=== PATIENT | male | born 1960 | race Hispanic/Latino ===

== ENCOUNTER 2018-05-11 09:09 | Emergency (ER) | payer MEDICAID ==
[2018-05-11 09:11] VITALS: BMI 30.9
[2018-05-11 09:15] VITALS: RESP 18
[2018-05-11] MEDS ORDERED: Sodium Chloride 0.9% 1,000 ML IV ONE (09:26)
[2018-05-11] MEDS ORDERED: Sodium Chloride 0.9% 1,000 ML ONE (09:40)
[2018-05-11 09:56] LABS: BASO # 0.1 K/uL (0.0-0.2); BASO % 1.2 % (0.0-2.0); EOS % 0.5 % (0.0-4.0); HEMOGLOBIN 12.1 g/dL (12.0-18.0); LYMPH # 0.7 K/uL (1.0-4.3); LYMPH % 7.3 % (20.0-40.0); MEAN CELL VOLUME 85.9 fL (80.0-94.0); MEAN CORPUSCULAR HEMOGLOBIN 28.4 pg (27.0-31.0); MEAN CORPUSCULAR HGB CONC 33.1 g/dL (33.0-37.0); MONO # 1.4 K/uL (0.0-0.8); MONO % 13.8 % (0.0-10.0); NEUT # 7.7 K/uL (1.8-7.0); NEUT % 77.2 % (50.0-75.0); NRBC % 0.1 % (0.0-2.0); PLATELET COUNT 239 K/uL (130-400); RBC 4.25 Mil/uL (4.40-5.90); RED CELL DISTRIBUTION WIDTH 18.1 % (11.5-14.5)
[2018-05-11 10:07] LABS: URINE BACTERIA MOD (<OCC); URINE BILIRUBIN NEGATIVE (NEGATIVE); URINE BLOOD 2+ (NEGATIVE); URINE CLARITY Turbid (Clear); URINE COLOR Yellow (YELLOW); URINE GLUCOSE (UA) NORMAL (Normal); URINE LEUKOCYTE ESTERASE 3+ Leu/uL (Negative); URINE PROTEIN 2+ mg/dL (NEGATIVE); URINE UROBILINOGEN NORMAL mg/dL (0.2-1.0); WBC CLUMPS RARE /hpf
[2018-05-11 10:07] LABS: INR 1.2; PROTHROMBIN TIME 13.5 SECONDS (9.7-12.2)
[2018-05-11 10:11] LABS: ALB/GLOB RATIO 1.4 (1.0-2.1); ALBUMIN 4.3 g/dL (3.5-5.0); ALT/SGPT 66 U/L (21-72); AST/SGOT 50 U/L (17-59); BLOOD UREA NITROGEN 59 mg/dL (9-20); CALCIUM 9.2 mg/dl (8.6-10.4); GFR NON-AFRICAN AMERICAN 52; LIPASE 49 U/L (23-300)
[2018-05-11 10:23] LABS: BASOPHIL 1 % (0-2); LYMPHOCYTE 9 % (20-40); MONOCYTE 12 % (0-10); NEUTROPHIL 78 % (50-75); PLATELET ESTIMATE NORMAL (NORMAL); TOTAL CELLS COUNTED 100
[2018-05-11 10:24] LABS: HYPOCHROMIC SLIGHT
--- NOTE | 2018-05-11 11:36 | CT ---
PROCEDURE: CT Abdomen and Pelvis without Oral or IV contrast. HISTORY: dysuria/hematuria COMPARISON: None available. TECHNIQUE: Contiguous axial images of the abdomen and pelvis. No oral or IV contrast administered. Coronal and Sagittal reformats generated and reviewed. Radiation dose: Total exam DLP = 932.41 mGy-cm. This CT exam was performed using one or more of the following dose reduction techniques: Automated exposure control, adjustment of the mA and/or kV according to patient size, and/or use of iterative reconstruction technique. FINDINGS: There is limited evaluation of the solid organs without the administration of IV contrast. LOWER THORAX: Mild bibasilar atelectasis. No visible pleural effusion or pneumothorax. Hiatal hernia/distal esophageal wall thickening. LIVER: Unremarkable unenhanced appearance. GALLBLADDER AND BILE DUCTS: Unremarkable unenhanced appearance. PANCREAS: Unremarkable unenhanced appearance. SPLEEN: Unremarkable unenhanced appearance. ADRENALS: Left adrenal gland hypertrophy. The right adrenal gland appears unremarkable. KIDNEYS AND URETERS: Severe right-sided hydroureter nephrosis. Mild left-sided hydroureter ureter nephrosis. The kidneys appear malrotated bilaterally. No obstructing calculi identified. BLADDER: Irregularly thick-walled under distended urinary bladder with adjacent inflammatory changes. Unusual appearance of the perivesicular fat on the right may be postsurgical appearance; correlate with surgical history. Small fluid in the right perivascular/inguinal region spanning approximately 3.1 x 3.6 cm and measures approximately 9 HU, possibly postsurgical seroma REPRODUCTIVE: The prostate gland measures approximately 5.3 x 4.9 cm and contains calcifications. APPENDIX: The appendix appears within normal limits of caliber. No secondary signs of acute appendicitis. BOWEL: The stomach is nondistended. Lack of oral contrast limits evaluation for bowel pathology. The bowel loops appear within normal limits of caliber without evidence of intestinal obstruction. PERITONEUM: 5.2 x 3.9 cm low-density mass in the right retroperitoneum. No definite free air. VASCULATURE: Atherosclerotic calcifications of the aorta. No aortic aneurysm. BONES: Degenerative changes. OTHER FINDINGS: Fat, fluid, and vessels noted in the right inguinal region; correlate clinically for possibility of lipomatosis of the spermatic cord. Large fat containing left inguinal hernia. IMPRESSION: 5.2 x 3.9 cm low-density mass in the right retroperitoneum, indeterminate. Recommend correlation with prior outside imaging if available. Considerations include but not limited to primary retroperitoneal neoplasm, lymphadenopathy, etc. Severe right-sided hydroureter nephrosis. Mild left-sided hydroureter ureter nephrosis. The kidneys appear malrotated bilaterally. No obstructing calculi identified. Irregularly thick-walled under distended urinary bladder with adjacent inflammatory changes; recommend correlation with urinalysis. Unusual appearance of the perivesicular fat on the right may be postsurgical appearance; correlate with surgical history. Small fluid in the right perivascular/inguinal region spanning approximately 3.1 x 3.6 cm and measures approximately 9 HU, possibly postsurgical seroma. Fat, fluid, and vessels noted in the right inguinal region; correlate clinically for possibility of lipomatosis of the spermatic cord. Large fat containing left inguinal hernia. Additional findings as above. Findings discussed with Dr. Christopher on 05/11/18 at 11:25 a.m.
[2018-05-11 12:01] VITALS: BP 107/72; PULSE 88; TEMP 98.5; O2SAT 94
--- NOTE | 2018-05-11 12:44 | C.PDOC ---
History Of Present Illness 57 y/o male presents to the ER complaining of suprapubic abdominal pain, dysuria and hematuria which has been present since yesterday. Patient states that he had recent hernia repair at [facility].Denies having fever,chills, nausea, vomiting, and back pain. Of note, HPI is limited because patient is poor historian from surgical history standpoint. Time Seen by Provider: 05/11/18 09:16 Chief Complaint (Nursing): Male Genitourinary History Per: Patient History/Exam Limitations: other (pt is poor historian) Onset/Duration Of Symptoms: Days Current Symptoms Are (Timing): Still Present Severity: Moderate Past Medical History Reviewed: Historical Data, Nursing Documentation, Vital Signs Vital Signs: Last Vital Signs Temp 98.5 F 05/11/18 12:00 Pulse 88 05/11/18 12:00 Resp 18 05/11/18 12:00 BP 107/72 05/11/18 12:00 Pulse Ox 94 L 05/11/18 12:00 - Medical History PMH: HTN, Hypercholesterolemia Other Surgeries: Hx of surgeries Family History: States: No Known Family Hx - Social History Hx Alcohol Use: Yes Hx Substance Use: No - Immunization History Hx Tetanus Toxoid Vaccination: No Hx Influenza Vaccination: Yes Hx Pneumococcal Vaccination: Yes Review Of Systems Except As Marked, All Systems Reviewed And Found Negative. Constitutional: Negative for: Fever, Chills Cardiovascular: Negative for: Chest Pain Respiratory: Negative for: Cough, Shortness of Breath Gastrointestinal: Positive for: Abdominal Pain. Negative for: Nausea, Vomiting Genitourinary: Positive for: Dysuria, Hematuria Physical Exam - Physical Exam Appears: No Acute Distress, Unkempt Skin: Normal Color, Warm, Dry Head: Atraumatic, Normacephalic Eye(s): bilateral: Normal Inspection Nose: Normal Oral Mucosa: Moist Neck: Supple Chest: Symmetrical Cardiovascular: Rhythm Regular Respiratory: Normal Breath Sounds, No Rales, No Rhonchi Gastrointestinal/Abdominal: Soft, Tenderness (mild suprapubic tenderness), No Guarding, No Rebound Neurological/Psych: Oriented x3, Normal Speech ED Course And Treatment - Laboratory Results Result Diagrams: 05/11/18 09:52 05/11/18 09:52 Lab Results: PT 13.5 SECONDS (9.7-12.2) H 05/11/18 09:52 INR 1.2 05/11/18 09:52 APTT 28 SECONDS (21-34) 05/11/18 09:52 Total Bilirubin 0.9 mg/dL (0.2-1.3) 05/11/18 09:52 AST 50 U/L (17-59) 05/11/18 09:52 ALT 66 U/L (21-72) 05/11/18 09:52 Alkaline Phosphatase 97 U/L (38-126) 05/11/18 09:52 Total Protein 7.4 g/dL (6.3-8.3) 05/11/18 09:52 Albumin 4.3 g/dL (3.5-5.0) 05/11/18 09:52 Globulin 3.1 gm/dL (2.2-3.9) 05/11/18 09:52 Albumin/Globulin Ratio 1.4 (1.0-2.1) 05/11/18 09:52 Lipase 49 U/L (23-300) 05/11/18 09:52 Urine Color Yellow (YELLOW) 05/11/18 09:32 Urine Clarity Turbid (Clear) 05/11/18 09:32 Urine pH 6.0 (5.0-8.0) 05/11/18 09:32 Ur Specific [place] 1.014 (1.003-1.030) 05/11/18 09:32 Urine Protein 2+ mg/dL (NEGATIVE) H 05/11/18 09:32 Urine Glucose (UA) Normal mg/dL (Normal) 05/11/18 09:32 Urine Ketones Negative mg/dL (NEGATIVE) 05/11/18 09:32 Urine Blood 2+ (NEGATIVE) H 05/11/18 09:32 Urine Nitrate Negative (NEGATIVE) 05/11/18 09:32 Urine Bilirubin Negative (NEGATIVE) 05/11/18 09:32 Urine Urobilinogen Normal mg/dL (0.2-1.0) 05/11/18 09:32 Ur Leukocyte Esterase 3+ Mor/uL (Negative) H 05/11/18 09:32 Urine WBC (Auto) 1990 /hpf (0-5) H 05/11/18 09:32 Urine RBC (Auto) 123 /hpf (0-3) H 05/11/18 09:32 Urine WBC Clumps (Auto) Rare /hpf (NONE) H 05/11/18 09:32 Urine Bacteria Mod (<OCC) H 05/11/18 09:32 O2 Sat by Pulse Oximetry: 94 (RA) Pulse Ox Interpretation: Normal - CT Scan/US CT-Abd & Pelv. Other Rad Studies (CT/US): Read By Radiologist, Radiology Report Reviewed CT/US Interpretation: PROCEDURE: CT Abdomen and Pelvis without Oral or IV contrast. HISTORY: dysuria/hematuria. COMPARISON: None available. TECHNIQUE: Contiguous axial images of the abdomen and pelvis. No oral or IV contrast administered. Coronal and Sagittal reformats generated and reviewed. Radiation dose: Total exam DLP = 932.41 mGy-cm. This CT exam was performed using one or more of the following dose reduction techniques: Automated exposure control, adjustment of the mA and/or kV according to patient size, and/or use of iterative reconstruction technique. FINDINGS: There is limited evaluation of the solid organs without the administration of IV contrast. LOWER THORAX: Mild bibasilar atelectasis. No visible pleural effusion or pneumothorax. Hiatal hernia/distal esophageal wall thickening. LIVER: Unremarkable unenhanced appearance. GALLBLADDER AND BILE DUCTS: Unremarkable unenhanced appearance. PANCREAS: Unremarkable unenhanced appearance. SPLEEN: Unremarkable unenhanced appearance. ADRENALS: Left adrenal gland hypertrophy. The right adrenal gland appears unremarkable. KIDNEYS AND URETERS: Severe right-sided hydroureter nephrosis. Mild left-sided hydroureter ureter nephrosis. The kidneys appear malrotated bilaterally. No obstructing calculi identified. BLADDER: Irregularly thick-walled under distended urinary bladder with adjacent inflammatory changes. Unusual appearance of the perivesicular fat on the right may be postsurgical appearance; correlate with surgical history. Small fluid in the right perivascular/inguinal region spanning approximately 3.1 x 3.6 cm and measures approximately 9 HU, possibly postsurgical seroma. REPRODUCTIVE: The prostate gland measures approximately 5.3 x 4.9 cm and contains calcifications. APPENDIX: The appendix appears within normal limits of caliber. No secondary signs of acute appendicitis. BOWEL: The stomach is nondistended. Lack of oral contrast limits evaluation for bowel pathology. The bowel loops appear within normal limits of caliber without evidence of intestinal obstruction. PERITONEUM: 5.2 x 3.9 cm low-density mass in the right retroperitoneum. No definite free air. VASCULATURE: Atherosclerotic calcifications of the aorta. No aortic aneurysm. BONES: Degenerative changes. OTHER FINDINGS: Fat, fluid, and vessels noted in the right inguinal region; correlate clinically for possibility of lipomatosis of the spermatic cord. Large fat containing left inguinal hernia. IMPRESSION: 5.2 x 3.9 cm low-density mass in the right retroperitoneum, indeterminate. Recommend correlation with prior outside imaging if available. Considerations include but not limited to primary retroperitoneal neoplasm, lymphadenopathy, etc. Severe right-sided hydroureter nephrosis. Mild left-sided hydroureter ureter nephrosis. The kidneys appear malrotated bilaterally. No obstructing calculi identified. Irregularly thick-walled under distended urinary bladder with adjacent inflammatory changes; recommend correlat ion with urinalysis. Unusual appearance of the perivesicular fat on the right may be postsurgical appearance; correlate with surgical history. Small fluid in the right perivascular/inguinal region spanning approximately 3.1 x 3.6 cm and measures approximately 9 HU, possibly postsurgical seroma. Fat, fluid, and vessels noted in the right inguinal region; correlate clinically for possibility of lipomatosis of the spermatic cord. Large fat containing left inguinal hernia. Additional findings as above. Findings discussed with Dr. Christopher on 05/11/18 at 11:25 a.m. Medical Decision Making Medical Decision Making: Plan: --Labs --UA --CT-Abd & Pelv. --IV Fluids Updates: I reviewed CT findings and explained to patient that many of the CT findings appear to be chronic in nature as determined by the radiologist. Patient understands. I highly recommended that patient follow up with his PMD and surgeon. Patient has been discharged home and will follow up as instructed. Disposition - [facility] - Disposition: HOME/ ROUTINE Disposition Time: 11:25 Condition: GOOD Additional Instructions: JUDY FAM, thank you for letting us take care of you today. The emergency medical care you received today was directed at your acute symptoms. If you were prescribed any medication, please fill it and take as directed. It may take several days for your symptoms to resolve. Return to the Emergency Department if your symptoms worsen, do not improve, or if you have any other problems. Please contact your doctor or call one of the physicians/clinics you have been referred to that are listed on the Patient Visit Information form that is included in your discharge packet. Bring any paperwork you were given at [facility] with you along with any medications you are taking to your follow up visit. Our treatment cannot replace ongoing medical care by a primary care provider outside of the emergency department. Thank you for allowing the [facility] team to be part of your care today. YOU MUST FOLLOW UP WITH YOUR PRIMARY CARE DOCTOR AND THE SURGEON THAT JUST DID YOUR SURGERY IN 3-4 DAYS FOR RE-EVALUATION AND FURTHER MANAGEMENT. Prescriptions: Ciprofloxacin [Cipro] 500 mg PO BID #28 tab Ibuprofen [Motrin] 600 mg PO Q6 PRN #20 tab PRN Reason: Pain, Moderate (4-7) Instructions: Acute Cystitis (DC) Forms: ZAP (Estonian) - Clinical Impression Clinical Impression: Cystitis - Scribe Statement The provider has reviewed the documentation as recorded by the Evangelistaibinderjit Engel Provider Attestation: All medical record entries made by the Scribe were at my direction and personally dictated by me. I have reviewed the chart and agree that the record accurately reflects my personal performance of the history, physical exam, medical decision making, and the department course for this patient. I have also personally directed, reviewed, and agree with the discharge instructions and disposition.
== END 2018-05-11 12:06 | disposition home or self-care (01) ==
LOC: C.ER 09:09
DX: N30.90 Cystitis, unspecified without hematuria (principal)
CPT/HCPCS: 74176; 80053; 81001; 83690; 85025; 85610; 85730; 87086; 87181; 99285; J7030